=== PATIENT | female | born 1990 | race American Indian/Alaskan Native ===

== ENCOUNTER 2021-08-29 09:35 | Emergency (ER) | payer MEDICAID | END 2021-08-29 11:28 | disposition home or self-care (01) | LOC: JP.ED 09:35 | DX: H53.2 Diplopia (principal); E03.9 Hypothyroidism, unspecified; F17.210 Nicotine dependence, cigarettes, uncomplicated; Z88.1 Allergy status to other antibiotic agents | CPT/HCPCS: 99281; 99285 ==